=== PATIENT | female | born 1990 | race Hispanic/Latino ===

== ENCOUNTER 2020-05-16 12:21 | Emergency (ER) | payer OTHER, SELFPAY ==
--- NOTE | ~2020-05-16 | XR_ITS ---
EXAMINATION: XR chest 2V DATE: 05/16/2020 12:52 INDICATION: Chest pain. TECHNIQUE: Frontal and lateral views of the chest were obtained. COMPARISON: None. FINDINGS: There is no pneumonia, pleural effusion, or pneumothorax. The heart size is normal. IMPRESSION: 1. No acute cardiopulmonary disease. Reviewed, dictated and finalized at location A.
--- NOTE | ~2020-05-16 | CT_ITS ---
EXAMINATION: CTA chest PE protocol DATE: 05/16/2020 13:49 INDICATION: Shortness of breath. TECHNIQUE: Computed tomography angiography (CTA) of the chest was performed with 100 mL Omnipaque-350 intravenous contrast timed to evaluate the pulmonary arteries. Coronal maximum intensity projection 3D-reconstructions were created by the technologist. Automated exposure control and iterative reconst ruction technique were employed. The dose-length product was 262.48 mGy-cm. COMPARISON: Chest 2 views 05/16/2020 FINDINGS: There is no pneumonia or pleural effusion. A calcified right lung nodule is consistent with old granulomatous disease. The heart size is normal. No pericardial effusion. There is no pulmonary embolus. The bones are unremarkable. IMPRESSION: 1. No pulmonary embolus. Reviewed, dictated and finalized at location A. IMPRESSION: 1. No pulmonary embolus.
--- NOTE | 2020-05-16 12:27 | ECG_ITS ---
Measurements Intervals [place] Rate: 81 P: 51 RI: 125 QRS: -5 QRSD: 88 T: 27 QT: 378 QTc: 439 Interpretive Statements SINUS RHYTHM VOLTAGE CRITERIA FOR LVH BORDERLINE T WAVE ABNORMALITY- INFERIOR LEADS BORDERLINE ECG Electronically Signed On 05-16-2020 12:57:03 CDT by Sam Day D.O.
[2020-05-16 12:28] VITALS: BP 127/83; PULSE 84; RESP 15; TEMP 37.1; O2SAT 100
[2020-05-16 12:33] VITALS: PULSE 82
--- NOTE | 2020-05-16 12:46 | PC.NURSE ---
Pt to XRAY via stretcher.
[2020-05-16 12:55] LABS: Basophils Percent Auto 0.4 % (0.2-1.2); Eosinophils Percent Auto 0.1 % (0-4.4); Hematocrit 36.6 % (37.0-47.0); Hemoglobin 11.4 g/dL (12.0-15.0); Immature Granulocyte Absolute 0.03 K/mm3 (0.00-0.031); Immature Granulocyte Percent A 0.4 % (0-0.5); Lymphocytes Absolute Auto 0.87 K/mm3 (0.9-3.2); Lymphocytes Percent Auto 10.8 % (18.3-44.2); Mean Corpuscular HGB Conc 31.1 g/dl (32-36); Mean Corpuscular Hemoglobin 22.1 pg (26-34); Mean Corpuscular Volume 70.9 fl (80-100); Mean Platelet Volume 11.6 fl (7.4-10.4); Monocytes Absolute Auto 0.2 K/mm3 (0.1-0.6); Monocytes Percent Auto 2.9 % (2.6-8.5); Neutrophils Absolute Auto 6.9 K/mm3 (1.3-6.7); Neutrophils Percent Auto 85.4 % (45.5-73.1); Platelet Count Result 294 k/mm3 (150-375); Red Blood Count 5.16 M/mm3 (4.2-5.4); Red Cell Distribution Width 16.3 % (11.5-14.5)
[2020-05-16] MEDS: SODIUM CHLORIDE 0.9% IV 1,000 ML 999 ML IV CONT (13:05)
[2020-05-16 13:06] VITALS: BP 140/80; PULSE 80; RESP 14; O2SAT 100
[2020-05-16 13:08] LABS: INR 1.1; Prothrombin Time 13.9 Seconds (11.1-14.7)
[2020-05-16 13:10] LABS: Partial Thromboplastin Time 25.2 SECONDS (22.3-36.8)
[2020-05-16 13:12] LABS: Blood Urea Nitrogen 9 mg/dL (7-17); Calcium 9.2 mg/dL (8.4-10.2); Carbon Dioxide 24 mmol/L (22-30); Chloride 105 mmol/L (98-107); Estimated CRCL calculation 103 ml/min; Estimated Glomerular Filt Rate > 60; Glucose 135 mg/dL (65-105); Potassium 3.8 mmol/L (3.4-5.0); Sodium 138 mmol/L (137-145)
[2020-05-16 13:13] LABS: D Dimer 1.47 ug/mL (<0.48)
--- NOTE | 2020-05-16 13:13 | ED.CHESTPAIN ---
HPI - Chest Pain General Chief Complaint: Chest Pain Stated Complaint: Chest pain Time Seen by Provider: 05/16/20 12:27 Source: patient Mode of arrival: ambulatory Limitations: no limitations History of Present Illness HPI narrative: Patient is a 29-year-old female who presents to emergency department for evaluation of chest heaviness since Tuesday as a constant moderate discomfort today while ambulating felt dizzy patient on arrival to emergency department notes that the dizziness has resolved and patient is resting comfortably in the room in no distress patient has not taken anything for her symptoms denies similar occurrence in the past. Patient denies sick contacts or URI symptoms or any dyspnea Related Data Home Medications Medication Instructions Recorded Confirmed No Home Medications 05/16/20 05/16/20 Allergies Allergy/AdvReac Type Severity Reaction Status Date / Time No Known Allergies Allergy Verified 05/16/20 12:33 Review of Systems Review of Systems: All systems reviewed & are unremarkable except as noted in HPI and below PMFSH Social History Social History Gender identity (if verbalized by the patient): Female Exam Narrative: Exam Narrative: GENERAL: Well-appearing, well-nourished, and in no acute distress. HEAD: Normocephalic, atraumatic. EYES: PERRLA and EOMI. ENT: Nares clear, no rhinorrhea or epistaxis. Mucous membranes moist. Oropharynx without tonsillar hypertrophy exudate or other lesions. NECK: Supple. No adenopathy or masses. CHEST: Clear to auscultation. No respiratory distress. No wheezes rales or rhonchi HEART: Regular rate and rhythm. No murmur heard. Normal peripheral pulses. ABDOMEN: Soft, nontender, nondistended EXTREMITIES: Normal range of motion. No edema. SKIN: Warm, dry, no rash. NEURO: No focal deficits. Alert and oriented x3. Cranial nerves II through XII grossly intact PSYCH: Normal mood and affect. Course Course Emergency Course: Patient in the room aware of case findings treatment plan and diagnosis felt appropriate for outpatient reevaluation and agreeing to follow-up as directed Vital Signs Vital signs: Vital Signs Temperature 98.7 F 05/16/20 12:28 Pulse Rate 84 05/16/20 12:28 Respiratory Rate 15 05/16/20 12:28 Blood Pressure 127/83 05/16/20 12:28 Pulse Oximetry 100 05/16/20 12:28 Temperature 98.7 F 05/16/20 12:28 Pulse Rate 70 05/16/20 13:34 Respiratory Rate 15 05/16/20 13:34 Blood Pressure 122/75 05/16/20 13:34 Pulse Oximetry 100 05/16/20 13:34 MDM - Chest Pain MDM Narrative Medical decision making narrative: Patients EKGs and labs are without significant high risk changes. Cardiac risk factors were reviewed. Patient is felt likely to be low risk for ACS and reasonable for further risk stratification testing as an outpatient. Pain was not sudden or maximal in onset without tearing or ripping. quality. No other signs or symptoms to suggest aortic dissection. A low-risk Wells criteria is noted. PE is felt to be unlikely. No pneumonia or URI symptoms were seen on evaluation today. Patient is felt to b reasonable for continued evaluation as an outpatient. Lab Data Result diagrams: 05/16/20 12:47 05/16/20 12:47 Labs: Lab Results 05/16/20 05/16/20 05/16/20 Range/Units 12:46 12:47 12:47 WBC 8.0 (4.5-10.0) K/mm3 RBC 5.16 (4.2-5.4) M/mm3 Hgb 11.4 L (12.0-15.0) g/dL Hct 36.6 L (37.0-47.0) % MCV 70.9 L (80-100) fl MCH 22.1 L (26-34) pg MCHC 31.1 L (32-36) g/dl RDW 16.3 H (11.5-14.5) % Plt Count 294 (150-375) k/mm3 MPV 11.6 H (7.4-10.4) fl Immature Gran % (Auto) 0.4 (0-0.5) % Neut % (Auto) 85.4 H (45.5-73.1) % Lymph % (Auto) 10.8 L (18.3-44.2) % [place] % (Auto) 2.9 (2.6-8.5) % Eos % (Auto) 0.1 (0-4.4) % Baso % (Auto) 0.4 (0.2-1.2) % Lymph # (Auto) 0.87 L (0.9-3.2) K/mm3 [place] # (Auto) 0.2 (0.1-0.6) K
[2020-05-16 13:23] LABS: Troponin I < 0.012 ng/mL (0.000-0.034)
[2020-05-16 13:34] VITALS: BP 122/75; PULSE 70; RESP 15; O2SAT 100
[2020-05-16 15:08] VITALS: BP 128/81; PULSE 72; RESP 14; O2SAT 90
[2020-05-16 15:32] VITALS: BP 135/85; PULSE 72; RESP 12; O2SAT 95
== END 2020-05-16 15:33 | disposition home or self-care (01) ==
PROVIDERS: Emergency Medicine Emergency Medical Services; Emergency Provider Emergency Medicine
DX: R07.9 Chest pain, unspecified (principal); R94.31 Abnormal electrocardiogram [ECG] [EKG]
CPT/HCPCS: 36415; 71046; 71275; 80048; 81025; 84484; 85025; 85380; 85610; 85730; 93005; 96360; 99284; J7030; Q9967

== ENCOUNTER 2022-01-11 00:36 | Day surgery (SDC) | payer OTHER, SELFPAY ==
[2022-01-05 12:05] VITALS: BMI 29.1
--- NOTE | 2022-01-08 13:46 | PM.HPGS ---
History of Present Illness History of Present Illness Consent: Risks, benefits, and alternatives have been discussed and questions answered. Patient agrees to proceed with procedure. Chief complaint: GERD Narrative: Jojo Mackenzie is a 31 year old female referred by Dr. Hudson for evaluation of GERD. Reports symptoms started this past November. Prior to this she was diagnosed with Covid, she was fairly asymptomatic from covid aside from body aches and cough that lasted for 2 days. States acid reflux and nausea is worse in the morning, when she is really hungry, or with running. She reports associated bad breath and burning sensation that radiates up midchest, but towards the left. She c/o of intermittent LUQ and epigastric pain and burning sensations. LUQ pain will radiate to the left shoulder and thento her back. Symptoms improves with eating as long as she don't over eat. She denies any vomiting, black stools, diarrhea/constipation/change in bowel habits. No dysphagia or odynophagia. Denies Nsaid use. She has cut out spicy foods, coffee and chocolate. She denies any improvement with Tums or Pepcid. She took omeprazole for one week but it caused diarrhea, now on Pantoprazole 40 mg daily with mild improvement. Review of Systems Review of Systems: All systems reviewed & are unremarkable except as noted in HPI and below PMFSH Past Medical History Medical History Allergies Anxiety Surgical History Surgical History H/O gynecological procedure ParaGard insertion - 2017 Family History Family History Mother Hypertension Thyroid disorder Grandparent Diabetes mellitus Social History Social History Smoking status: Never smoker Alcohol intake: current Drinks per week: 1 Alcohol use details: occasionally Substance use: never Substance use type: does not use Living arrangements: with family Additional occupation/education comments: Homemaker Gender identity (if verbalized by the patient): Female Sexual Orientation (if Verbalized by the Patient): Straight or Heterosexual Spiritual care concerns: No Meds Home Medications and Allergies Home Medications Medication Instructions Recorded Confirmed Type No Home Medications 05/16/20 05/16/20 History pantoprazole 40 mg tablet,delayed 40 mg PO QAM #30 tablet 12/11/21 01/11/22 Rx release Allergies Allergy/AdvReac Type Severity Reaction Status Date / Time No Known Allergies Allergy Verified 01/11/22 08:23 Exam Const: General: alert Orientation/consciousness: patient oriented x3 Resp: Auscultation: clear to auscultation bilaterally Cardio: Rhythm: regular rhythm GI: GI Palp: Yes Soft to palpation and No Tenderness to palpation present (GI) Neuro: General: patient oriented x3 Assessment and Plan Assessment and plan (1) GERD (gastroesophageal reflux disease): Code(s): K21.9 - Gastro-esophageal reflux disease without esophagitis Status: Acute Assessment and Plan: EGD with possible biopsy or dilatation or cautery.
--- NOTE | 2022-01-10 10:09 | P.PNAN_ITS ---
Anes - Eval Pre Procedure Procedure: Operation Date: 01/11/22 09:15 Proposed Procedures p Esophagogastroduodenoscopy - Rico Peres MD Date/Time: 01/10/22 10:09 Pre Op Diagnosis: GERD Patient Data Age: 31 Gender: F Height: 1.65 m Weight: 79.5 kg Allergies Allergy/AdvReac Type Severity Reaction Status Date / Time No Known Allergies Allergy Verified 01/06/22 10:39 Home Medications Medication Instructions Recorded Confirmed Type No Home Medications 05/16/20 05/16/20 History pantoprazole 40 mg tablet,delayed 40 mg PO QAM #30 tablet 12/11/21 01/06/22 Rx release Patient hx anesthesia problems: none Family hx anesthesia problems: none Results Review: All pre-operative results and documents have been reviewed as part of the pre-operative evaluation. [facility] Past Medical History Medical History Allergies Anxiety Surgical History Surgical History H/O gynecological procedure ParaGard insertion - 2017 Family History Family History Mother Hypertension Thyroid disorder Grandparent Diabetes mellitus Social History Social History Smoking status: Never smoker Alcohol intake: current Drinks per week: 1 Alcohol use details: occasionally Substance use: never Substance use type: does not use Living arrangements: with family Occupation/Education: unemployed Additional occupation/education comments: Homemaker Gender identity (if verbalized by the patient): Female Sexual Orientation (if Verbalized by the Patient): Straight or Heterosexual Spiritual care concerns: No Exam Day of Procedure 01/10/22 10:09 Patient weight: overweight (bmi 29.2)
[2022-01-11 08:28] VITALS: BP 112/75; PULSE 72; RESP 16; TEMP 36.3; O2SAT 100
[2022-01-11] MEDS: LACTATED RINGERS 1,000 ML 150 ML IV CONT (08:37)
[2022-01-11 09:22] VITALS: BP 100/64; PULSE 77; RESP 18; O2SAT 96
[2022-01-11 09:32] VITALS: BP 107/68; PULSE 71; RESP 20; O2SAT 100
[2022-01-11 09:42] VITALS: BP 109/64; PULSE 75; RESP 15; O2SAT 100
== END 2022-01-11 09:50 | disposition home or self-care (01) ==
PROVIDERS: PCP Family Medicine; Visit Provider Internal Medicine Gastroenterology
PROC: 0DJ08ZZ Inspection of Upper Intestinal Tract, Via Natural or Artificial Opening Endoscopic (ICD-10-PCS; CPT 43235; principal; 2022-01-11 09:15)
DX: K21.9 Gastro-esophageal reflux disease without esophagitis (principal)
CPT/HCPCS: 43239; 87081; J2704; J7120